=== PATIENT | female | born 1950 | race Caucasian/White ===

== ENCOUNTER → 2018-02-21 14:19 | Outpatient (CLI) | payer MEDICARE, BC ==
[2016-02-18 12:34] VITALS: BMI 27.9
[~2018-02-21 14:19] MED LIST: CRESTOR40 MG PO; ESTROGEL50 GM; HCTZ25 MG PO; METOPROLOL TART50 MG PO; MOBIC7.5 MG PO; NEXIUM40 MG PO; PREMPRO 0.625/21 TA1; VISTARIL25 MG PO; ZESTRIL40 MG PO
== END | disposition home or self-care (01) ==
LOC: D.US 14:19
DX: G45.9 Transient cerebral ischemic attack, unspecified (principal)

== ENCOUNTER 2018-05-11 06:52 | Day surgery (SDC) | payer MEDICARE, BC ==
[2018-05-08 13:33] LABS: HEMATOCRIT 38.5 % (36.0-48.0); HEMOGLOBIN 12.6 g/dL (12-16); MCH 28.8 pg (26.0-34.0); MCHC 32.7 g/dL (31.0-37.0); MCV 87.9 fL (80.0-100.0); MEAN PLATELET VOLUME 8.8 fL (7.4-10.4); RBC 4.38 10x6/uL (4.00-5.40); RDW 14.4 % (11.5-14.5); WBC 8.4 10x3/uL (4.8-10.8)
[~2018-05-11] VITALS: Ht 167.6 cm; Wt 69.9 kg
--- NOTE | ~2018-05-11 | OP ---
PATIENT NAME: MAURIZIO CONWAY MEDICAL RECORD: [id number] :52 LOCATION:[facility]OPS ADMISSION DATE: SURGEON: BIJU ROMERO MD DATE OF OPERATION: 05/11/2018 PREOPERATIVE DIAGNOSES: 1. Medial meniscus tear of the left knee. 2. Lateral meniscus tear of the left knee. POSTOPERATIVE DIAGNOSES: 1. Medial meniscus tear of the left knee. 2. Lateral meniscus tear of the left knee. PROCEDURES: 1. Arthroscopic partial medial meniscectomy of the left knee. 2. Arthroscopic partial lateral meniscectomy. SURGEON: Biju Romero MD ANESTHESIA: General. INTRAOPERATIVE COMPLICATIONS: None. SUMMARY OF PATHOLOGIC FINDINGS: The patient did indeed have a tear of both the lateral meniscus as well as the medial meniscus. The medial joint line had some evidence of damage with a chondral scar over the area of the meniscal tear. OPERATIVE SUMMARY IN DETAIL: After obtaining the appropriate preoperative orthopaedic surgery consent as well as anesthetic consultation, evaluation, and clearance, the patient was brought to the operating room and placed on the operating table in the supine position. After adequate general laryngeal mask airway was administered, the tourniquet was placed about the proximal aspect of the left lower extremity. The left lower extremity was then prepped and draped in routine sterile fashion. The leg was elevated, exsanguinated, and the tourniquet was inflated to 350 mmHg. Routine inferolateral portal was established followed by superomedial portal and inferomedial portal. Diagnostic arthroscopy did reveal the above findings. Attention was first turned to the medial meniscus. Combination of meniscotomes and arthroscopic resectors were utilized to debride the complex tear of the posterior horn of the medial meniscus. Again, this patient was torn at the root but the root was not taken down. All unstable meniscal elements were taken down so that the patient had good residual lateral and anterolateral horn of the medial meniscus. With the knee in a [id number] position, the mid substance tear, complex, of the lateral meniscus was addressed with combination of meniscotomes as well as arthroscopic resector. Having completed the lateral meniscus treatment, the knee was insufflated with 30 cc of 0.25% Marcaine with epinephrine and 80 mg of Depo-Medrol. Arthroscopy portals were closed in routine interrupted fashion with 4-0 Prolene. Sterile dressing was applied. Tourniquet was deflated. The patient was awakened and taken to recovery room in stable condition. All final needle and sponge counts were correct. TRANSINT:[id number] Voice Confirmation ID: [id number] DOCUMENT ID: [id number] OPERATIVE REPORT [id number] MAURIZIO CONWAY MD, BIJU SUBRAMANIAN at 1547 CC: [id number] DICTATION DATE: 05/15/18926 CHURN TENDER: 05/15/18 1250 [facility] 05/11/[address] [id number]
[2018-05-11] MEDS ORDERED: LISINOPRIL10 MG PO (08:43)
[2018-05-11] MEDS ORDERED: ORAPRED ODT10 MG/TAB PO (08:44)
[2018-05-11] MEDS ORDERED: FLAGYL500 MG PO (08:44)
[2018-05-11] MEDS ORDERED: ARTHROTEC EC 71 EACH PO (08:45)
[2018-05-11] MEDS ORDERED: MIRAPEX0.5 MG PO (08:46)
[2018-05-11 08:47] VITALS: BP 128/59; Ht 167.6 cm; Wt 69.9 kg
[2018-05-11] MEDS ORDERED: HYDROCODONE-APA1 TAB PO (10:21)
== END 2018-05-11 14:08 | disposition home or self-care (01) ==
LOC: D.OPS 06:52 → D.PAN 09:15 → D.OPS 09:30
PROVIDERS: Anesthesiology
DX: S83.232A Complex tear of medial meniscus, current injury, left knee, initial encounter (principal); S83.272A Complex tear of lateral meniscus, current injury, left knee, initial encounter; Z01.812 Encounter for preprocedural laboratory examination

== ENCOUNTER → 2019-03-28 15:51 | Outpatient (CLI) | payer MEDICARE, BC ==
[2018-05-11 08:47] VITALS: BMI 24.9
[~2019-03-28 15:51] MED LIST changes: +ARTHROTEC EC 71 EACH PO; +FLAGYL500 MG PO; +HYDROCODONE-APA1 TAB PO; +LISINOPRIL10 MG PO; +MIRAPEX0.5 MG PO; +ORAPRED ODT10 MG/TAB PO
[2019-03-30 09:15] LABS: HEPATITIS C ANTIBODY <0.1 S/CO RAT (0.0-0.9)
== END | disposition home or self-care (01) ==
LOC: D.LAB 15:51
PROVIDERS: ATTEND Internal Medicine Gastroenterology
DX: R16.2 Hepatomegaly with splenomegaly, not elsewhere classified (principal); I49.9 Cardiac arrhythmia, unspecified; R12 Heartburn